=== PATIENT | female | born 1950 | race Caucasian/White ===

== ENCOUNTER 2020-09-22 22:13 | Emergency (ER) | payer MEDICARE, MEDICAID ==
[~2020-09-22] VITALS: Ht 165.1 cm; Wt 63.5 kg
[2020-09-22] MEDS ORDERED: XOPENEX0.31 MG/3 INH (22:22)
[2020-09-22] MEDS ORDERED: ASA81BEC PO (22:23)
[2020-09-22 22:49] LABS: CALCIUM 9.1 mg/dL (8.5-10.1); CREATININE 0.7 mg/dL (0.6-1.3)
[2020-09-22 22:50] LABS: ABSOLUTE EOSINOPHILS 0.1 thou/uL (0.0-0.7); ABSOLUTE LYMPHOCYTES 2.4 thou/uL (0.8-5.3); ABSOLUTE MONOCYTES 0.5 thou/uL (0.0-1.2); ABSOLUTE NEUTROPHILS 3.1 thou/uL (1.6-8.1); BASOPHILS 0.7 %; EOSINOPHILS 2.2 %; HEMATOCRIT 42.4 % (37.0-47.0); HEMOGLOBIN 14.3 gm/dL (12.0-15.0); LYMPHOCYTES 38.9 %; MCH 31.9 pg (26.0-34.0); MCHC 33.7 g/dL (28.0-37.0); MCV 94.6 fL (80.0-100.0); MONOCYTES 7.9 %; MPV 9.7 fl. (7.2-11.1); NUCLEATED RBCS 0 /100WBC; PLATELET COUNT* 145 thou/uL (150-400); POLYS 50.3 %; RBC 4.48 mil/uL (4.20-5.00); RDW-CV 13.3 % (10.5-14.5); WBC 6.2 thou/uL (4.0-11.0)
[2020-09-22 22:53] LABS: APTT 23.8 Seconds (25.0-31.3); PROTIME 10.7 Seconds (9.20-11.50)
[2020-09-22 22:54] LABS: ALBUMIN 3.7 g/dL (3.4-5.0); MAGNESIUM 2.2 mg/dL (1.8-2.4); TOTAL BILIRUBIN 0.3 mg/dL (<0.1-1.0); TOTAL PROTEIN 7.7 g/dL (6.4-8.2)
[2020-09-22 23:15] LABS: BE 2.7 mmol/L (-2 to +3); PCO2 46.5 mmHg (35.0-45.0); PO2 69.4 mmHg (75.0-100.0)
[2020-09-22 23:41] LABS: URINE BILIRUBIN NEGATIVE (Negative); URINE BLOOD TRACE (Negative); URINE CLARITY SL CLOUDY; URINE COLOR YELLOW; URINE GLUCOSE-RANDOM NEGATIVE (Negative); URINE KETONES NEGATIVE (Negative); URINE NITRITE-REFLEX NEGATIVE (Negative); URINE PROTEIN TRACE (Negative); URINE UROBILINOGEN 0.2 E.U./dl (0.2-1.0)
[2020-09-22 23:42] LABS: URINE LEUKOCYTES-REFLEX 3+ (Negative)
[2020-09-22 23:48] LABS: BACTERIA-REFLEX 1-9 Few /HPF (None Seen); CRYSTALS None Seen /LPF (None Seen); HYALINE CASTS 0-3 Few /LPF (None Seen); MUCUS 0-3 Light strn/LPF (None Seen); SQUAMOUS NONE SEEN /LPF (0-3); URINE RBC 3-10 Few /HPF (0-2); URINE WBC-REFLEX >25 Many /HPF (0-5)
[2020-09-23 00:05] VITALS: BP 138/70
--- NOTE | 2020-09-23 08:28 | EKG ---
[place] [address] ELECTROCARDIOGRAM REPORT Name: MARY DOBBS Room: [facility]#: [id number] Admission: 09/22/20 Attend Phys: Discharge: 09/23/20 Date of : 46 Date of Service: 09/22/202242 Report #: [id number] THIS REPORT FOR: //name// [facility] ED Test Date: 2020-09-22 Test Time: 22:43:29 Pat Name: MARY MELISSAMARCELA Department: Room: Gender: F Mail Delivery Supervisor: RYAN : 1950 Requested By: Roxanne Gaona Order Number: [id number] MD: Puneet Silva Measurements Intervals [place] Rate: 78 P: 81 DE: 151 QRS: 47 QRSD: 97 T: 73 QT: 376 QTc: 429 Interpretive Statements Sinus rhythm No previous ECG available for comparison Electronically Signed On 09-23-2020 8:28:22 CDT by Puneet Silva [email or web address] <ELECTRONICALLY SIGNED> By: Puneet Silva MD, LOCATED WITHIN [facility] 09/23/20827 42 42 Puneet Silva MD, FACC /EPI
== END 2020-09-23 00:05 | disposition home or self-care (01) ==
LOC: M.ERS 22:13
PROVIDERS: Personal Emergency Response Attendant
DX: I63.9 Cerebral infarction, unspecified (principal); Z20.828 Contact with and (suspected) exposure to other viral communicable diseases; I10 Essential (primary) hypertension; R09.02 Hypoxemia; J44.9 Chronic obstructive pulmonary disease, unspecified; F17.210 Nicotine dependence, cigarettes, uncomplicated; Z91.041 Radiographic dye allergy status; Z88.0 Allergy status to penicillin; Z88.2 Allergy status to sulfonamides; Z91.012 Allergy to eggs; Z86.19 Personal history of other infectious and parasitic diseases; Z98.51 Tubal ligation status